=== PATIENT | female | born 1940 | race Caucasian/White ===

== ENCOUNTER → 2018-02-06 | Outpatient (CLI) | payer MEDICARE | END | disposition home or self-care (01) | LOC: OIH 13:27 | PROVIDERS: ATTEND Internal Medicine | DX: J20.9 Acute bronchitis, unspecified (principal) | CPT/HCPCS: 71046 ==

== ENCOUNTER → 2018-02-09 | Outpatient (CLI) | payer MEDICARE | END | disposition home or self-care (01) | LOC: OIH 15:20 | PROVIDERS: ATTEND Internal Medicine | DX: J18.9 Pneumonia, unspecified organism (principal) | CPT/HCPCS: 71046 ==

== ENCOUNTER → 2018-12-13 | Outpatient (CLI) | payer MEDICARE ==
[2018-12-13 09:02] LABS: INR 1.29 (0.85-1.15); PARTIAL THROMBOPLASTIN TIME 27.3 SEC (26.3-35.5); PROTHROMBIN TIME 13.5 SEC (9.6-11.6)
== END | disposition home or self-care (01) ==
LOC: LAB 08:06
PROVIDERS: ATTEND Internal Medicine Hematology & Oncology
DX: C85.81 Other specified types of non-Hodgkin lymphoma, lymph nodes of head, face, and neck (principal); R79.1 Abnormal coagulation profile
CPT/HCPCS: 36415; 85610; 85730

== ENCOUNTER → 2018-12-14 | Outpatient (CLI) | payer MEDICARE ==
[~2018-12-14] VITALS: Ht 167.6 cm; Wt 63.5 kg
[~2018-12-14] MED LIST: LIDOCAINE HCL 1% 20 ML VIAL ONE
--- NOTE | 2018-12-14 09:20 | NUR ---
U/S GD BX LEFT NECK NODULE PROCEDURE PERFORMED BY DR PHILLIPS . PUNCTURE SITE LEFT POSTERIOR NECK AND PATIENT TOLERATED PROCEDURE WELL. SPECIMEN X 6 COLLECTED AND SENT TO LAB. END OF PROCEDURE AT 0930. BIOPSY NEEDLE REMOVED AND DRESSING APPLIED. SPECIMEN SENT TO LAB NO BLEEDING NOTED. DISCHARGE INSTRUCTIONS GIVEN TO PATIENT AND VERBALIZED UNDERSTANDING. DISCHARGED VIA W/C. STABLE, AAO X3 WITH NO C/O PAIN.
== END ==
LOC: RAH 07:56
PROVIDERS: ATTEND Internal Medicine Hematology & Oncology
DX: R59.0 Localized enlarged lymph nodes (principal); C85.90 Non-Hodgkin lymphoma, unspecified, unspecified site; E03.9 Hypothyroidism, unspecified; D46.9 Myelodysplastic syndrome, unspecified; Z85.3 Personal history of malignant neoplasm of breast; Z98.890 Other specified postprocedural states; Z79.899 Other long term (current) drug therapy; I51.89 Other ill-defined heart diseases
CPT/HCPCS: 38505; 76942; 88305; A4215 ×2

== ENCOUNTER → 2019-07-16 | Outpatient (CLI) | payer MEDICARE | END | disposition home or self-care (01) | LOC: OIH 11:13 | PROVIDERS: ATTEND Internal Medicine | DX: J18.0 Bronchopneumonia, unspecified organism (principal) | CPT/HCPCS: 71046 ==

== ENCOUNTER → 2020-09-07 | Outpatient (CLI) | payer MEDICARE | END | disposition home or self-care (01) | LOC: OIH 14:23 | PROVIDERS: ATTEND Internal Medicine | DX: S32.592D Other specified fracture of left pubis, subsequent encounter for fracture with routine healing (principal); S70.02XA Contusion of left hip, initial encounter; S80.01XA Contusion of right knee, initial encounter; M47.816 Spondylosis without myelopathy or radiculopathy, lumbar region; M41.86 Other forms of scoliosis, lumbar region; M85.88 Other specified disorders of bone density and structure, other site; M47.818 Spondylosis without myelopathy or radiculopathy, sacral and sacrococcygeal region; M16.0 Bilateral primary osteoarthritis of hip; X58.XXXD Exposure to other specified factors, subsequent encounter; X58.XXXA Exposure to other specified factors, initial encounter; Y93.89 Activity, other specified; Y92.89 Other specified places as the place of occurrence of the external cause; Y99.8 Other external cause status | CPT/HCPCS: 72100; 72220; 73521 ==